=== PATIENT | female | born 1960 | race Caucasian/White ===

== ENCOUNTER 2025-01-21 14:46 | Inpatient (IN) ==
[2025-01-21 16:02] LABS: Creatine Kinase 23 U/L (24-170)
[2025-01-21 16:10] LABS: Anion Gap 11.0 (8.0-16.0); Basophils # (Auto) 0.02 K/mcL (0.00-0.30); Basophils % (Auto) 0.3 % (0.0-2.0); Blood Urea Nitrogen 14 mg/dL (8-23); Calcium 8.3 mg/dL (8.6-10.4); Carbon Dioxide 25 mmol/L (22-30); Chloride 103 mmol/L (96-108); Eosinophils # (Auto) 0.13 K/mcL (0.00-0.70); Eosinophils % (Auto) 1.8 % (0.0-7.0); Glucose 105 mg/dL (70-105); Hematocrit 30.8 % (34.1-44.9); Hemoglobin 9.5 g/dL (11.2-15.7); Lymphocytes # (Auto) 1.11 K/mcL (1.50-4.80); Lymphocytes % (Auto) 15.4 % (15.5-49.0); Mean Corpuscular HGB Conc 30.8 g/dL (31.0-36.0); Monocytes # (Auto) 0.69 K/mcL (0.10-0.90); Monocytes % (Auto) 9.6 % (1.0-12.0); Neutrophils % (Auto) 72.8 % (38.0-78.0); Platelet Count 289 K/mcL (140-440); Potassium 3.6 mmol/L (3.3-5.1); RBC 3.14 M/mcL (3.59-5.38); Sodium 139 mmol/L (133-145); WBC 7.2 K/mcL (4.5-11.0)
[2025-01-21] MEDS: 0.9 % SODIUM CHLORIDE 500 ML IV ONE (17:25)
[2025-01-21 18:38] LABS: Bacteria,Urine Many /hpf (0); Bilirubin,Urine Negative (Negative); Color,Urine Yellow; Glucose,Urine (UA) Negative (Negative); Ketones,Urine Negative (Negative); Leukocyte Esterase,Urine Trace /uL (Negative); PH,Urine 7.0 (5.0-9.0); Protein,Urine Negative (Negative); Specific Gravity,Urine 1.015 (1.000-1.035); Urobilinogen,Urine Normal
[2025-01-21] MEDS ORDERED: POTASSIUM CHLORIDE 40 MEQ in DEXTROSE 5% IN WATER 500 ML IV PRN (19:55)
[2025-01-21] MEDS ORDERED: MAGNESIUM SULFATE 2 GM/50 ML BAG IV PRN (19:55)
[2025-01-21] MEDS ORDERED: ACETAMINOPHEN 325 MG TABLET PO PRN (19:55)
[2025-01-21] MEDS ORDERED: POTASSIUM CHLORIDE 20 MEQ TABLET PO PRN ×2 (19:55)
[2025-01-21] MEDS ORDERED: METOCLOPRAMIDE 10 MG/2 ML VIAL IV PRN (19:55)
[2025-01-21] MEDS ORDERED: ONDANSETRON 4 MG/2 ML VIAL IV PRN (19:55)
[2025-01-21] MEDS ORDERED: SENNOSIDES 1 TABLET PO PRN (19:55)
[2025-01-21] MEDS: ACETAMINOPHEN 650 MG/65 ML BAG IV SCH (22:17)
[2025-01-21] MEDS: cefTRIAXone 1 GM VIAL IV ONE (22:17)
[2025-01-21] MEDS: DOCUSATE SODIUM 100 MG CAPSULE PO SCH (22:19)
[2025-01-21] MEDS: cefTRIAXone 1 GM VIAL IV SCH (22:19)
[2025-01-21] MEDS: 0.9 % SODIUM CHLORIDE 10 ML SYRINGE IV SCH (22:20)
[2025-01-21] MEDS: 0.9 % SODIUM CHLORIDE 1,000 ML IV SCH (23:45)
[2025-01-22 06:32] LABS: Basophils # (Auto) 0.03 K/mcL (0.00-0.30); Basophils % (Auto) 0.5 % (0.0-2.0); Eosinophils # (Auto) 0.22 K/mcL (0.00-0.70); Eosinophils % (Auto) 3.7 % (0.0-7.0); Hematocrit 33.9 % (34.1-44.9); Hemoglobin 10.1 g/dL (11.2-15.7); Lymphocytes # (Auto) 0.90 K/mcL (1.50-4.80); Lymphocytes % (Auto) 15.3 % (15.5-49.0); Mean Corpuscular HGB Conc 29.8 g/dL (31.0-36.0); Monocytes # (Auto) 0.60 K/mcL (0.10-0.90); Monocytes % (Auto) 10.2 % (1.0-12.0); Neutrophils % (Auto) 70.0 % (38.0-78.0); Platelet Count 265 K/mcL (140-440); RBC 3.37 M/mcL (3.59-5.38); WBC 5.9 K/mcL (4.5-11.0)
[2025-01-22 06:58] LABS: ALT/SGPT 13 U/L (<40); AST/SGOT 14 U/L (<32); Albumin 3.3 gm/dL (3.2-5.2); Albumin/Globulin Ratio 1.1 (1.0-2.3); Alkaline Phosphatase 63 U/L (39-117); Anion Gap 9.0 (8.0-16.0); Bilirubin,Direct < 0.2 mg/dL (0-0.3); Bilirubin,Total < 0.2 mg/dL (0.1-1.0); Blood Urea Nitrogen 9 mg/dL (8-23); Calcium 9.1 mg/dL (8.6-10.4); Carbon Dioxide 28 mmol/L (22-30); Chloride 101 mmol/L (96-108); Globulin 3.1 gm/dL (2.2-3.7); Glucose 111 mg/dL (70-105); Phosphorous 4.5 mg/dL (2.5-4.5); Potassium 4.1 mmol/L (3.3-5.1); Sodium 138 mmol/L (133-145); Triglycerides 120 mg/dL (<150); Uric Acid 4.6 mg/dL (2.5-8.0)
[2025-01-22] MEDS: ATENOLOL 25 MG TABLET PO SCH (08:14)
[2025-01-22] MEDS: Tiotropium Bromide 2.5 mcg/actuation mist INH SCH (08:15)
[2025-01-22] MEDS: 0.9 % SODIUM CHLORIDE 250 ML IV SCH (11:01)
[2025-01-22] MEDS ORDERED: fentaNYL 100 MCG/2 ML VIAL ONE (13:45)
[2025-01-22] MEDS ORDERED: PROPOFOL 200 MG/20 ML VIAL IV ONE (13:45)
[2025-01-22] MEDS ORDERED: SUGAMMADEX SODIUM 200 MG/2 ML VIAL IV ONE (13:45)
[2025-01-22] MEDS ORDERED: ROCURONIUM 10 MG/ML ML IV ONE ×2 (13:53→16:49)
[2025-01-22] MEDS ORDERED: DEXAMETHASONE 10 MG/ML VIAL ONE (13:54)
[2025-01-22] MEDS ORDERED: ONDANSETRON 4 MG/2 ML VIAL ONE (13:54)
[2025-01-22] MEDS ORDERED: LIDOCAINE 2% PF 5 ML VIAL ONE (13:54)
[2025-01-22] MEDS ORDERED: GLYCOPYRROLATE 0.2 MG/ML VIAL IV ONE (13:54)
[2025-01-22] MEDS ORDERED: MAGNESIUM SULFATE 2 GM/50 ML BAG IV ONE (13:55)
[2025-01-22] MEDS ORDERED: TRANEXAMIC ACID 1,000 MG/10 ML VIAL ONE (15:51)
[2025-01-22] MEDS ORDERED: ePHEDrine 50 MG/5 ML SYRINGE (ANEST) IV ONE (15:56)
[2025-01-22] MEDS ORDERED: PHENYLephrine 1 MG/10 ML SYRINGE (ANEST) ONE (15:58)
[2025-01-22] MEDS: ceFAZolin 2 GM in DEXTROSE 5% IN WATER 50 ML IV SCH (15:58)
[2025-01-22] MEDS ORDERED: FAMOTIDINE/PF 20 MG/2 ML VIAL IV ONE (16:29)
[2025-01-22] MEDS ORDERED: DEXMEDETOMIDINE HCL 200 MCG/2 ML VIAL ONE (17:05)
[2025-01-22] MEDS ORDERED: 0.9 % SODIUM CHLORIDE 100 ML IV ONE ×2 (17:19→17:57)
[2025-01-22] MEDS: VANCOMYCIN 1 GM VIAL TOPICAL SCH (17:31)
[2025-01-22] MEDS ORDERED: ePHEDrine 50 MG/ML AMPUL IV ONE (17:47)
[2025-01-22] MEDS ORDERED: PHENYLEPHRINE 10 MG/ML VIAL ONE (18:03)
[2025-01-22] MEDS ORDERED: ONDANSETRON 4 MG/2 ML VIAL IV PRN (18:42)
[2025-01-22] MEDS ORDERED: BENZOCAINE/MENTHOL 1 LOZENGE PO PRN ×2 (18:42→18:59)
[2025-01-22] MEDS ORDERED: IPRATROPIUM/ALBUTEROL 3 ML AMPUL.NEB NEB PRN (18:42)
[2025-01-22] MEDS ORDERED: METHOCARBAMOL 500 MG TABLET PO PRN (18:59)
[2025-01-22] MEDS: IPRATROPIUM/ALBUTEROL 3 ML AMPUL.NEB NEB PRN (19:07)
[2025-01-22] MEDS: fentaNYL 100 MCG/2 ML VIAL ONE (19:18)
[2025-01-22] MEDS: METHOCARBAMOL 1,000 MG/10 ML VIAL IV PRN (19:20)
[2025-01-22] MEDS: TRANEXAMIC ACID 1,000 MG/10 ML VIAL IV ONE (19:34)
[2025-01-22] MEDS: fentaNYL 100 MCG/2 ML VIAL IV PRN (19:40)
[2025-01-22] MEDS: LACTATED RINGERS 1,000 ML IV SCH (20:17)
[2025-01-22] MEDS: METHOCARBAMOL 1,000 MG/10 ML VIAL ONE (20:20)
[2025-01-22] MEDS: ACETAMINOPHEN 500 MG TABLET PO SCH (22:27)
[2025-01-23] MEDS ORDERED: ceFAZolin 2 GM in DEXTROSE 5% IN WATER 50 ML IV SCH
[2025-01-23] MEDS: CYCLOBENZAPRINE 10 MG TABLET PO PRN (03:42)
[2025-01-23] MEDS ORDERED: DIAZEPAM 10 MG/2 ML SYRINGE IV PRN (09:36)
[2025-01-23] MEDS: VANCOMYCIN 1 GM VIAL TOPICAL ONE (09:40)
[2025-01-23] MEDS: DIAZEPAM 10 MG/2 ML SYRINGE IV PRN (09:59)
[2025-01-23] MEDS: fentaNYL 100 MCG/2 ML VIAL ONE (10:18)
[2025-01-23] MEDS: TRANEXAMIC ACID 1,000 MG/10 ML VIAL ONE (10:18)
[2025-01-23] MEDS: LACTATED RINGERS 1,000 ML IV SCH (10:33)
[2025-01-23] MEDS: ENOXAPARIN 40 MG/0.4 ML SYRINGE SQ SCH (20:44)
[2025-01-24 06:44] LABS: Hematocrit 29.8 % (34.1-44.9); Hemoglobin 9.0 g/dL (11.2-15.7)
[2025-01-24 07:50] LABS: Anion Gap 8.0 (8.0-16.0); Blood Urea Nitrogen 14 mg/dL (8-23); Calcium 8.5 mg/dL (8.6-10.4); Carbon Dioxide 31 mmol/L (22-30); Chloride 103 mmol/L (96-108); Glucose 134 mg/dL (70-105); Potassium 3.8 mmol/L (3.3-5.1); Sodium 142 mmol/L (133-145)
[2025-01-24 12:31] VITALS: TEMP 97.9; O2SAT 98
[2025-01-24] MEDS: POLYETHYLENE GLYCOL 3350 17 GM PACKET PO PRN (14:19)
== END 2025-01-24 16:12 | DRG 461 ==
LOC: ED 14:46 → MEDSUR 19:41
PROVIDERS: ADMIT Internal Medicine; ATTEND Internal Medicine